=== PATIENT | male | born 1965 | race Caucasian/White ===

== ENCOUNTER 2018-09-05 05:28 | Day surgery (SDC) | payer OTHER, SELFPAY ==
[2018-09-05] VITALS (8 sets, daily range): BP systolic 102–136; BP diastolic 70–89; PULSE 70–76; RESP 16; TEMP 36.3–37.1; O2SAT 94–99; BMI 29.8
--- NOTE | 2018-09-05 06:08 | PCM.HP.STD ---
Problem List (1) Screening for intestinal cancer Status: Acute History of Present Illness Date of Admission: 09/05/18 The patient is a 53 year old M who presents for screening colonoscopy. He has not had any previous examination. He denies abdominal pain. No bright red blood per rectum or melena. No unexpected weight loss. There is no family history of colon polyps or colon cancer. He otherwise enjoys a steady degree of health. He is a type II diabetic and he does not check his blood sugars. In addition he does use chewing tobacco. He works as a recycler forklift driver truck driver. Past Medical History Allergies No Known Allergies Allergy (Verified 09/04/18 13:35) Home Medications: Ambulatory Orders Medication Instructions Recorded Dapagliflozin Propanediol [Farxiga] 10 mg PO DAILY 09/04/18 Lisinopril [Zestril] 10 mg PO DAILY 09/04/18 Sitagliptin Phos/Metformin HCl 1 tablet PO BIDCM 09/04/18 [Janumet 50-1,000 MG Tablet] Smoking Status: Current every day smoker Tobacco Use: Chew Review of Systems Constitutional: Denies: Anorexia HEENT: Denies: Difficulty Swallowing Cardiovascular: Denies: Chest Pain Respiratory: Denies: Cough Gastrointestinal: Denies: Abdominal Pain, Hematochezia, Melena Musculoskeletal: Denies: Leg Pain Neurological: Denies: Balance problems Endocrine: Denies: Change in Body Habitus VTE Information - Inpt Only VTE Present on Admission: No Patient Problems: Active and Suspected Problems Screening for intestinal cancer (Acute) - Physical Exam General: Alert, Oriented x3, Cooperative, No apparent distress Oral: Moist Mucosa Neck: Supple Lungs: Clear to auscultation Cardiovascular: Regular rate, Regular Rhythm Abdomen: Bowel Sounds Present, Soft, Non Tender Extremities: No clubbing Skin: No rashes Vital Signs Temp Pulse Resp BP Pulse Ox 97.3 F L 76 16 106/83 H 99 09/05/18 05:46 09/05/18 05:46 09/05/18 05:46 09/05/18 05:46 09/05/18 05:46 Oxygen Delivery Method Room Air Weight: 207 lb 14.334 oz Body Mass Index (BMI) 29.8 Assessment/Plan All Active Problems Screening for intestinal cancer (Acute) 53-year-old gentleman who has not had a previous screening colonoscopy. I discussed with him the technique, benefits, risks and alternatives. He has had an opportunity to ask and have questions answered. He presents via our open Access program. We will proceed as noted. Felix Calvo M.D., F.A.C.S.
--- NOTE | 2018-09-05 06:30 | COLBX_PTH ---
PATIENT: IRVIN PETERSON LOC: EN U#:[id number] AGE/SX: 53/M ROOM: RE09/05/[address]: Dr. Felix Calvo MD : 1965 BED: DIS: 09/05/2018 SPEC #: [id number] RECD: 09/05/18 12:09 STATUS: JESSICA CHRIS #: [id number] MARISOL: 09/05/18 06:[address]: Felix Calvo DEPT: SURGICAL PATHOLOGY RECD BY: Umesh Parnell ENTERED: 09/05/18 12:32 SP TYPE: COLON BX OTHR DR: Cristine Law DO Tissues: Sigmoid colon biopsy Procedures: Surgery Specimen Level IV HEADER OPERATION: Colonoscopy (MOD) PRE-OP DIAGNOSIS: Screening TISSUE SUBMITTED: Mid sigmoid polyp MICROSCOPIC DIAGNOSIS Mid sigmoid colon polyp, biopsy: Fragments of hyperplastic polyp. AM:maribell 09/08/18 MICROSCOPIC DESCRIPTION Slides are reviewed. GROSS DESCRIPTION Received in fixative is one container labeled with the patient's name and designated mid sigmoid polyp. The specimen consists of two pieces of mike-pink soft tissue mixed with fecal material that in aggregate measure 1.5 x 0.5 x 0.1 cm. The specimen is totally submitted in one cassette. / SJ:maribell 09/05/18 TC:5 CPT: 06478
--- NOTE | 2018-09-05 06:48 | OP.ENDO_ITS ---
Patient Name: Flip Monteiro Procedure Date: 09/05/2018 5:58 AM Date of : 1965 Age: 53 Procedure: Colonoscopy Indications: Screening for colorectal malignant neoplasm Providers: Felix Calvo MD Referring MD: Felix Calvo MD Medicines: Midazolam 4.5 mg IV, Meperidine 100 mg IV Patient Profile: Last Colonoscopy: none. The patient's first colonoscopy is today. Complications: No immediate complications. Procedure: Pre-Anesthesia Assessment: - Prior to the procedure, a History and Physical was performed, and patient medications and allergies were reviewed. The patient's tolerance of previous anesthesia was also reviewed. The risks and benefits of the procedure and the sedation options and risks were discussed with the patient. All questions were answered, and informed consent was obtained. Prior Anticoagulants: The patient has taken no previous anticoagulant or antiplatelet agents. ASA Grade Assessment: II - A patient with mild systemic disease. After reviewing the risks and benefits, the patient was deemed in satisfactory condition to undergo the procedure. After I obtained informed consent, the scope was passed under direct vision. Throughout the procedure, the patient's blood pressure, pulse, and oxygen saturations were monitored continuously. The Colonoscope was introduced through the anus and advanced to the cecum, identified by appendiceal orifice and ileocecal valve. The colonoscopy was performed without difficulty. The patient tolerated the procedure well. The quality of the bowel preparation was good. The ileocecal valve and the appendiceal orifice were photographed. Moderate Sedation: Moderate (conscious) sedation was personally administered by the endoscopist. The following parameters were monitored: oxygen saturation, heart rate, blood pressure, and response to care. Total physician intraservice time was 15 minutes. Scope In: 6:30:59 AM Scope Withdrawal Time 0 hours 9 minutes 14 seconds Scope Out: 6:43:08 AM Total Procedure Duration Time 0 hours 12 minutes 9 seconds Findings: The perianal and digital rectal examinations were normal. A 7 mm polyp was found in the sigmoid colon mid sigmoid colon. The polyp was sessile. The polyp was removed with a cold snare. Resection and retrieval were complete. To prevent bleeding post-intervention, one hemostatic clip was successfully placed. There was no bleeding at the end of the procedure. The exam was otherwise without abnormality. Impression: - One 7 mm polyp in the sigmoid colon in the mid sigmoid colon, removed with a cold snare. Resected and retrieved. Clip was placed. - The examination was otherwise normal. Recommendation: - Discharge patient to home. - Resume previous diet. - Continue present medications. - Telephone my office for pathology results in 1 week. - Repeat colonoscopy in 5 years for surveillance. Procedure Code(s): --- Professional --- 59713, Colonoscopy, flexible; with removal of tumor(s), polyp(s), or other lesion(s) by snare technique 61529, 59, Moderate sedation services provided by the same physician or other qualified health cardiac care unit nurse performing the diagnostic or therapeutic service that the sedation supports, requiring the presence of an independent trained observer to assist in the monitoring of the patient's level of consciousness and physiological status; initial 15 minutes of intraservice time, patient age 5 years or older Diagnosis Code(s): --- Professional --- Z12.11, Encounter for screening for malignant neoplasm of colon D12.5, Benign neoplasm of sigmoid colon CPT copyright 2017 [employer]. All rights reserved. The codes documented in this report are preliminary and upon fiberglass finisher review may be revised to meet current compliance requirements. Felix Calvo MD 09/05/2018 6:48:27 AM This report has been signed electronically. Number of Addenda: 0 Note Initiated On: 09/05/2018 5:58 AM
--- OUTSIDE RECORDS SUMMARY | 2018-10-31 00:42 | XMS RPT_ITS ---
:1965 Author Organization [facility] Care Team Providers Name Role Phone Nurse, Surgery Attending Unavailable William Johnson Referring Unavailable Felix Calvo Attending Unavailable Felix Calvo Referring Unavailable Cristine Law Primary Care Unavailable Felix Calvo Attending Unavailable Felix Calvo Referring Unavailable Cristine Law Primary Care Unavailable Felix Calvo Consulting Unavailable PROBLEMS PROBLEMS No Problem Records FoundPROCEDURES PROCEDURES No Procedure Records FoundRESULTS RESULTS OPERATIVE REPORT - Observed: 09/05/2018 Status: F Source: [facility] 6:48 AM [facility] Medical Records Department [address] [place] [address] Operative Report - Endoscopy MR#: [id number] Acct: [id number] Name: IRVIN PETERSON Rep #: [id number] : 1965 53 From: Felix Calvo MD PCP: Cristine Law DO Status: REG [facility] Patient Name: Irvin Peterson Procedure Date: 09/05/2018 5:58 AM Date of : 1965 Age: 53 Procedure: Colonoscopy Indications: Screening for colorectal malignant neoplasm Providers: Felix Calvo MD Referring MD: Felix Calvo MD Medicines: Midazolam 4.5 mg IV, Meperidine 100 mg IV Patient Profile: Last Colonoscopy: none. The patient's first colonoscopy is today. Complications: No immediate complications. Procedure: Pre-Anesthesia Assessment: - Prior to the procedure, a History and Physical was performed, and patient medications and allergies were reviewed. The patient's tolerance of previous anesthesia was also reviewed. The risks and benefits of the procedure and the sedation options and risks were discussed with the patient. All questions were answered, and informed consent was obtained. Prior Anticoagulants: The patient has taken no previous anticoagulant or antiplatelet agents. ASA Grade Assessment: II - A patient with mild systemic disease. After reviewing the risks and benefits, the patient was deemed in satisfactory condition to undergo the procedure. After I obtained informed consent, the scope was passed under direct vision. Throughout the procedure, the patient's blood pressure, pulse, and oxygen saturations were monitored continuously. The Colonoscope was introduced through the anus and advanced to the cecum, identified by appendiceal orifice and ileocecal valve. The colonoscopy was performed without difficulty. The patient tolerated the procedure well. The quality of the bowel preparation was good. The ileocecal valve and the appendiceal orifice were photographed. Moderate Sedation: Moderate (conscious) sedation was personally administered by the endoscopist. The following parameters were monitored: oxygen saturation, heart rate, blood pressure, and response to care. Total physician intraservice time was 15 minutes. Scope In: 6:30:59 AM Scope Withdrawal Time 0 hours 9 minutes 14 seconds Scope Out: 6:43:08 AM Total Procedure Duration Time 0 hours 12 minutes 9 seconds Findings: The perianal and digital rectal examinations were normal. A 7 mm polyp was found in the sigmoid colon mid sigmoid colon. The polyp was sessile. The polyp was removed with a cold snare. Resection and retrieval were complete. To prevent bleeding post-intervention, one hemostatic clip was successfully placed. There was no bleeding at the end of the procedure. The exam was otherwise without abnormality. Impression: - One 7 mm polyp in the sigmoid colon in the mid sigmoid colon, removed with a cold snare. Resected and retrieved. Clip was placed. - The examination was otherwise normal. Recommendation: - Discharge patient to home. - Resume previous diet. - Continue present medications. - Telephone my office for pathology results in 1 week. - Repeat colonoscopy in 5 years for surveillance. Procedure Code(s): --- Professional --- 57959, Colonoscopy, flexible; with removal of tumor(s), polyp(s), or other lesion(s) by snare technique 30283, 59, Moderate sedation services provided by the same physician or other qualified health life care planner performing the diagnostic or therapeutic service that the sedation supports, requiring the presence of an independent trained observer to assist in the monitoring of the patient's level of consciousness and physiological status; initial 15 minutes of intraservice time, patient age 5 years or older Diagnosis Code(s): --- Professional --- Z12.11, Encounter for screening for malignant neoplasm of colon D12.5, Benign neoplasm of sigmoid colon CPT copyright 2017 [employer]. All rights reserved. The codes documented in this report are preliminary and upon hands assembler review may be revised to meet current compliance requirements. Felix Calvo MD 09/05/2018 6:48:27 AM This report has been signed electronically. Number of Addenda: 0 Note Initiated On: 09/05/2018 5:58 AM 09/05/18 0648 Date Felix Calvo MD Cosigner Signature: Date (if indicated) CC: Cristine Law DO; Felix Calvo MD Date Dictated: 09/05/18 0558 Date Transcribed: Drug Department Worker: REBECA Signed COLON BIOPSY (CHOOSE Observed: 09/05/2018 Status: F Source: [facility]) 6:30 AM [facility] Patient: IRVIN PETERSON : 1965 (53/M) Acct Num: [id number] Phys: Felix Calvo MD Unit Num: [id number] Loc: EN Specimen: [id number] Received: 09/05/18 - 1209 Spec Type: COLON BX TISSUES 1 TISSUES: Sigmoid colon biopsy GROSS DESCRIPTION Received in fixative is one container labeled with the patient's name and designated mid sigmoid polyp. The specimen consists of two pieces of mike-pink soft tissue mixed with fecal material that in aggregate measure 1.5 x 0.5 x 0.1 cm. The specimen is totally submitted in one cassette. / SJ:maribell 09/05/18 TC:5 CPT: 97527 HEADER OPERATION: Colonoscopy (MOD) PRE-OP DIAGNOSIS: Screening TISSUE SUBMITTED: Mid sigmoid polyp MICROSCOPIC DESCRIPTION Slides are reviewed. MICROSCOPIC DIAGNOSIS Mid sigmoid colon polyp, biopsy: Fragments of hyperplastic polyp. AM:maribell 09/08/18 Signed Denilson Wicho 09/08/18 <signature on file> Performed By: #### PCOLBX #### [facility] [address] [place] [place], [address] HISTORY AND PHYSICAL Observed: 09/05/2018 Status: F Source: [facility] 6:11 AM [facility] Medical Records Department [address] [place] [address] History and Physical 09/05/18 0608 MR#: [id number] Acct: [id number] Name: IRVIN PETERSON Rep #: [id number] : 1965 53 From: Felix Calvo MD PCP: Cristine Law DO Status: REG [facility] Y Location: [place] [address] Problem List (1) Screening for intestinal cancer Status: Acute History of Present Illness Date of Admission: 09/05/18 The patient is a 53 year old M who presents for screening colonoscopy. He has not had any previous examination. He denies abdominal pain. No bright red blood per rectum or melena. No unexpected weight loss. There is no family history of colon polyps or colon cancer. He otherwise enjoys a steady degree of health. He is a type II diabetic and he does not check his blood sugars. In addition he does use chewing tobacco. He works as a truck crane operator. Past Medical History Allergies No Known Allergies Allergy (Verified 09/04/18 13:35) Home Medications: Ambulatory Orders Medication Instructions Recorded Dapagliflozin Propanediol [Farxiga] 10 mg PO DAILY 09/04/18 Smoking Status: Current every day smoker Tobacco Use: Chew Review of Systems Constitutional: Denies: Anorexia HEENT: Denies: Difficulty Swallowing Cardiovascular: Denies: Chest Pain Respiratory: Denies: Cough Gastrointestinal: Denies: Abdominal Pain, Hematochezia, Melena Musculoskeletal: Denies: Leg Pain Neurological: Denies: Balance problems Endocrine: Denies: Change in Body Habitus VTE Information - Inpt Only VTE Present on Admission: No Patient Problems: Active and Suspected Problems Screening for intestinal cancer (Acute) - Physical Exam General: Alert, Oriented x3, Cooperative, No apparent distress Oral: Moist Mucosa Neck: Supple Lungs: Clear to auscultation Cardiovascular: Regular rate, Regular Rhythm Abdomen: Bowel Sounds Present, Soft, Non Tender Extremities: No clubbing Skin: No rashes Vital Signs Temp Pulse Resp BP Pulse Ox 97.3 F L 76 16 106/83 H 99 09/05/18 05:46 09/05/18 05:46 09/05/18 05:46 09/05/18 05:46 09/05/18 05:46 Oxygen Delivery Method Room Air Weight: 207 lb 14.334 oz Body Mass Index (BMI) 29.8 Assessment/Plan All Active Problems Screening for intestinal cancer (Acute) 53-year-old gentleman who has not had a previous screening colonoscopy. I discussed with him the technique, benefits, risks and alternatives. He has had an opportunity to ask and have questions answered. He presents via our open Access program. We will proceed as noted. Felix Calvo M.D., F.A.C.S. 09/05/18 0611 <Electronically signed by Felix Calvo MD> Date Felix Calvo MD Cosigner Signature: Date (if applicable) CC: Cristine Law DO; Felix Calvo MD Signed ALLERGIES ALLERGIES DATE TYPE / CODE NAME / CODE REACTION SEVERITY SOURCE 09/04/2018 Drug No Known Unknown [facility] Allergy/4160 Allergies/F00 [facility] 96693(SNOMED 6279326(RXNOR Repository CT) M) ENCOUNTERS ENCOUNTERS ADMIT/DISCHARGE ACCOUNT ADMITTING ENCOUNTER LOCATION SOURCE NUMBER CLASS 09/05/2018 [id number] Ambulatory BMSBuilding:[facility] [place] [facility] [place] Repository 09/05/2018/ [id number] Ambulatory [place] 8 9 [facility] ing:EN Repository 08/07/2018/ [id number] Ambulatory BMSBuilding:B [place] 8 8 [place].[facility] Repository PAYERS PAYERS ENCOUNTER GUARANTOR PAYER SUBSCRIBER SOURCE 09/05/2018 IRVIN So [id number] Primary IRVIN So EBBREEZYOB: [facility] Insurance:[id number] [address]Epy: (330) Number: Repository [phone] () [id number] [place] [id number]: 09/05/2018 Secondary NOT GIVENUNK [place] Insurance:SELF PAY [facility] Number: Effective Repository Date:2018-09-05 09/05/2018 IRVIN So [id number] Primary IRVIN So EBYDOB: [facility] Insurance:MEDICAL [id number] [address]Nzp: [phone]) Number: Repository [phone] () [id number] Date:7304[place] [id number]: 09/05/2018 Secondary NOT GIVENUNK [place] Insurance:SELF PAY [facility] Number: Effective Repository Date:2018-08-08 08/07/2018 IRVIN [id number] Primary IRVIN DAVEYDOB: [facility] Insurance:MEDICAL [id number] [address]Dhz: (330) Number: Repository [phone] () [id number] Date:0510-95-61KN [address] [place], [place] [id number]: 08/07/2018 Secondary NOT GIVENUNK [place] Insurance[facility]LF [facility]Y [facility] Number: Effective Repository Date:2018-08-07
== END 2018-09-05 07:23 | disposition home or self-care (01) ==
LOC: EN 05:29 → AC 05:48
PROVIDERS: Family Provider Family Medicine; PCP Family Medicine; Referring Provider Surgery; Visit Provider Surgery
PROC: 0DJD8ZZ Inspection of Lower Intestinal Tract, Via Natural or Artificial Opening Endoscopic (ICD-10-PCS; CPT 45378; principal; 2018-09-05 06:25)
DX: Z12.11 Encounter for screening for malignant neoplasm of colon (principal); K63.5 Polyp of colon; E11.9 Type 2 diabetes mellitus without complications; F17.220 Nicotine dependence, chewing tobacco, uncomplicated; Z79.84 Long term (current) use of oral hypoglycemic drugs; Z79.899 Other long term (current) drug therapy
CPT/HCPCS: 45385; 88305; 99152; 99153; J7120

== ENCOUNTER 2019-06-29 00:01 | Emergency (ER) | payer OTHER, SELFPAY ==
[2019-06-24 18:36] VITALS: BMI 29.8
[2019-06-29 00:01] VITALS: BP 145/91; PULSE 69; RESP 16; TEMP 36.1; BMI 31.6
--- NOTE | 2019-06-29 00:33 | ED.VIS.GEN ---
History of Present Illness Chief Complaint: Dental Narrative: Patient is a 54-year-old male who presents with dental pain. He is a diabetic as well. He chipped or broke his tooth last week. He saw the dentist but at that time actually was not having pain. He was scheduled for another appointment this upcoming Saturday. However he developed severe throbbing pain today. No heat or cold sensitivity. No facial or jaw swelling. No fever. He did take some Tylenol with little relief. Past Medical History - Allergies and Home Meds Allergies/Adverse Reactions: Allergies No Known Allergies Allergy (Verified 06/24/19 18:07) Primary Care Physician: Ce Peres MD [Primary Care Provider] - Prior records reviewed: Yes Past Medical History: - - Diabetes Smoking Status: Never smoker Review of Systems All systems negative except as indicated General: Denies: Fever ENT: Reports: - - Dental pain Cardiovascular: Denies: Chest pain Respiratory: Denies: Dyspnea Gastrointestinal: Denies: Vomiting, Diarrhea Physical Exam Vital Signs/Narrative: Vital Signs Temp Pulse Resp BP 06/29/19 00:01 97.0 F L 69 16 145/91 H Inital Vital Signs reviewed: Yes General: Well nourished Head: Normocephalic Eyes: EOMI ENT: Moist mucous membranes, - - Fracture of the right second mandibular molar as well as focal decay he does not have a focal dental abscess amenable to incision and drainage no facial or jaw swelling no trismus clear speech Cardiovascular: Regular rate Respiratory: No distress Skin: Normal color Neurological: Alert Psychological: Normal affect Diagnostic/Tx/Re-eval - Medical Decision Making Patient was given prescriptions for penicillin VK as well as [place]. He was advised to use ibuprofen as well. He was advised to keep his scheduled follow-up with dentistry, understands to return for new or worsening symptoms, and was discharged home. ED Disposition - Plan for ED Patient: Disposition: Home or Assisted Living Diagnosis: Pain, dental Instructions: Dental Pain Prescriptions: Hydrocodone Bitart/Apap 5-325 [[place] 5MG-325MG] 1 tab PO Q6H PRN PRN 3 Days #12 tab PRN Reason: Pain Prescription Printed Penicillin V Potassium 500 mg PO 4X/DAY #40 tab Prescription Printed Referrals: Ce Peres MD [Primary Care Provider] -
[2019-06-29 00:43] VITALS: RESP 16
== END 2019-06-29 00:43 | disposition home or self-care (01) ==
PROVIDERS: Emergency Provider Emergency Medicine; Family Provider Internal Medicine; PCP Internal Medicine
DX: K08.89 Other specified disorders of teeth and supporting structures (principal); E11.9 Type 2 diabetes mellitus without complications
CPT/HCPCS: 99282

== ENCOUNTER → 2019-09-25 07:58 | Outpatient (CLI) | payer OTHER, SELFPAY ==
[2019-09-25 07:19] VITALS: BMI 31.6
[2019-09-25 13:39] LABS: Absolute Lymphocyte Count 1.87 X10^3/uL (0.83-4.51); Absolute Neutrophil Count 3.7 X10^3/uL (2.0-7.7); Basophil# 0.05 X10^3/uL; Basophil% 0.8 % (0-1); Eosinophil# 0.08 X10^3/uL; Eosinophils% 1.3 % (0-5); Hematocrit 51.7 % (40-54); Hemoglobin 16.8 g/dL (13.0-16.5); Lymphocyte # 1.87 X10^3/ul (4.0); Lymphocyte % 30.1 % (19-41); Mean Corp Hgb Conc 32.5 g/dL (32-36); Mean Corpuscular Hgb 28.7 pg (27.0-32.0); Mean Corpuscular Volume 88.2 fL (80-94); Mean Platelet Vol. 10.7 fl (6.2-12.0); Monocyte# 0.53 X10^3/uL; Monocyte% 8.5 % (0-10); NRBC Flagged by Analyzer 0 % (0-5); Neutrophil # 3.66 X10^3/uL (2.7-7.7); Neutrophil % 58.8 % (47-70); Platelet Count 226 K/mm3 (150-450); RBC Distribution Width CV 12.6 % (11.6-14.6); RBC Distribution Width SD 40.9 fl (35.1-43.9); Red Blood Count 5.86 M/mm3 (4.6-6.2); White Blood Count 6.2 K/mm3 (4.4-11.0)
[2019-09-25 13:49] LABS: Thyroid Stim Hormone (TSH) 1.87 uIU/mL (0.358-3.74)
[2019-09-25 13:59] LABS: Microalbumin,Random Urine 8.7 mg/L (NO RANGE EST.); Microalbumin:Creatinine Ratio 7.7 mg/g CRE (<30 mg/g CRE)
[2019-09-25 14:15] LABS: ALB/GLOB Ratio 1.2 RATIO (0.9-2.4); AST(SGOT) 18 U/L (15-37); Alanine Aminotransfer ALT/SGPT 25 U/L (16-61); Albumin, Serum 4.1 g/dL (3.2-5.0); Alkaline Phosphatase 85 U/L (45-117); Anion Gap 6 (5-15); BUN 12 mg/dL (7-18); BUN/Creat Ratio 9.6 RATIO (10-20); Calcium,Total 9.1 mg/dL (8.5-10.1); Chloride 106 mmol/L (98-107); Cholesterol 112 mg/dL (200); Creatinine, Serum 1.25 mg/dL (0.70-1.30); EST Glomerular Filtration Rate 64 mL/min (>60); Est Glom Filt Rate - Afr Amer 78 mL/min (>60); Globulin 3.5 g/dL (2.2-4.2); Glucose 100 mg/dL (74-106); High Density Lipoprotein 33 mg/dL; PSA,Total - Annual Screen 2.92 ng/mL (0.00-4.00); Potassium 4.3 mmol/L (3.5-5.1); Protein, Total 7.6 g/dL (6.4-8.2); Sodium Level 141 mmol/L (136-145); Triglycerides 137 mg/dL; Very Low Density Lipoprotein 27 mg/dL (5-40)
== END ==
PROVIDERS: Family Provider Internal Medicine; PCP Internal Medicine; Visit Provider Nurse Practitioner Family
DX: Z00.00 Encounter for general adult medical examination without abnormal findings (principal); E11.9 Type 2 diabetes mellitus without complications; R53.83 Other fatigue
CPT/HCPCS: 36415; 80053; 80061; 82043; 82570; 84153; 84443; 85025; G0103

== ENCOUNTER → 2020-12-20 09:27 | Outpatient (CLI) | payer OTHER, SELFPAY ==
[2020-12-20 09:01] VITALS: BMI 32.4
[2020-12-20 12:40] LABS: Absolute Lymphocyte Count 1.61 X10^3/uL (0.83-4.51); Absolute Neutrophil Count 3.7 X10^3/uL (2.0-7.7); Basophil# 0.04 X10^3/uL; Basophil% 0.7 % (0-1); Eosinophil# 0.05 X10^3/uL; Eosinophils% 0.8 % (0-5); Lymphocyte # 1.61 X10^3/ul (4.0); Lymphocyte % 27.1 % (19-41); Mean Corpuscular Hgb 29.8 pg (27.0-32.0); Mean Corpuscular Volume 87.5 fL (80-94); Monocyte# 0.49 X10^3/uL; Monocyte% 8.2 % (0-10); NRBC Flagged by Analyzer 0 % (0-5); Neutrophil # 3.73 X10^3/uL (2.7-7.7); Neutrophil % 62.9 % (47-70); Platelet Count 176 K/mm3 (150-450); RBC Distribution Width CV 12.4 % (11.6-14.6); RBC Distribution Width SD 38.9 fl (35.1-43.9); Red Blood Count 5.37 M/mm3 (4.6-6.2); White Blood Count 5.9 K/mm3 (4.4-11.0)
[2020-12-20 13:00] LABS: Microalbumin,Random Urine 8.4 mg/L (NO RANGE EST.); Microalbumin:Creatinine Ratio 5.5 mg/g CRE (<30 mg/g CRE)
[2020-12-20 13:39] LABS: PSA,Total - Annual Screen 2.13 ng/mL (0.00-4.00)
[2020-12-20 14:03] LABS: ALB/GLOB Ratio 1.1 RATIO (0.9-2.4); AST(SGOT) 15 U/L (15-37); Alanine Aminotransfer ALT/SGPT 25 U/L (16-61); Albumin, Serum 3.8 g/dL (3.2-5.0); Alkaline Phosphatase 88 U/L (45-117); Anion Gap 8 (5-15); BUN 12 mg/dL (7-18); Chloride 101 mmol/L (98-107); Cholesterol 135 mg/dL (200); Creatinine, Serum 1.34 mg/dL (0.70-1.30); EST Glomerular Filtration Rate 59 mL/min (>60); Est Glom Filt Rate - Afr Amer 72 mL/min (>60); Globulin 3.6 g/dL (2.2-4.2); Glucose 244 mg/dL (74-106); High Density Lipoprotein 38 mg/dL; Potassium 4.5 mmol/L (3.5-5.1); Protein, Total 7.4 g/dL (6.4-8.2); Sodium Level 135 mmol/L (136-145); Thyroid Stim Hormone (TSH) 1.49 uIU/mL (0.358-3.74); Triglycerides 204 mg/dL; Very Low Density Lipoprotein 41 mg/dL (5-40)
== END ==
PROVIDERS: PCP Internal Medicine; Referring Provider Nurse Practitioner Family; Visit Provider Nurse Practitioner Family
DX: E11.9 Type 2 diabetes mellitus without complications (principal); I10 Essential (primary) hypertension; Z12.5 Encounter for screening for malignant neoplasm of prostate
CPT/HCPCS: 36415; 80053; 80061; 82043; 82570; 84153; 84443; 85025; G0103

== ENCOUNTER 2021-12-22 08:05 | Outpatient (CLI) | payer BC, SELFPAY ==
[2021-12-22 12:24] LABS: Absolute Lymphocyte Count 2.19 X10^3/uL (0.83-4.51); Absolute Neutrophil Count 3.4 X10^3/uL (2.0-7.7); Basophil# 0.05 X10^3/uL; Basophil% 0.8 % (0-1); Eosinophil# 0.05 X10^3/uL; Eosinophils% 0.8 % (0-5); Hematocrit 47.1 % (40-54); Hemoglobin 15.8 g/dL (13.0-16.5); Lymphocyte # 2.19 X10^3/ul (0.83-4.51); Lymphocyte % 35.3 % (19-41); Mean Corp Hgb Conc 33.5 g/dL (32-36); Mean Corpuscular Hgb 29.9 pg (27.0-32.0); Mean Platelet Vol. 10.6 fl (6.2-12.0); Monocyte# 0.52 X10^3/uL; Monocyte% 8.4 % (0-10); NRBC Flagged by Analyzer 0 % (0-5); Neutrophil # 3.38 X10^3/uL (2.7-7.7); Neutrophil % 54.4 % (47-70); Platelet Count 214 K/mm3 (150-450); RBC Distribution Width CV 12.7 % (11.6-14.6); RBC Distribution Width SD 41.2 fl (35.1-43.9); Red Blood Count 5.29 M/mm3 (4.6-6.2); White Blood Count 6.2 K/mm3 (4.4-11.0)
[2021-12-22 12:52] LABS: Hemoglobin A1c 7.1 % (3.8-5.6)
[2021-12-22 13:04] LABS: ALB/GLOB Ratio 1.2 RATIO (0.9-2.4); AST(SGOT) 19 U/L (15-37); Alanine Aminotransfer ALT/SGPT 27 U/L (16-61); Albumin, Serum 3.8 g/dL (3.2-5.0); Alkaline Phosphatase 80 U/L (45-117); Anion Gap 3 (5-15); BUN 14 mg/dL (7-18); BUN/Creat Ratio 11.4 RATIO (10-20); Calcium,Total 8.9 mg/dL (8.5-10.1); Chloride 106 mmol/L (98-107); Cholesterol 130 mg/dL (200); Creatinine, Serum 1.23 mg/dL (0.70-1.30); EST Glomerular Filtration Rate 65 mL/min (>60); Est Glom Filt Rate - Afr Amer 79 mL/min (>60); Globulin 3.3 g/dL (2.2-4.2); Glucose 147 mg/dL (74-106); High Density Lipoprotein 33 mg/dL; Potassium 3.8 mmol/L (3.5-5.1); Protein, Total 7.1 g/dL (6.4-8.2); Sodium Level 138 mmol/L (136-145); Thyroid Stim Hormone (TSH) 2.06 uIU/mL (0.358-3.74); Triglycerides 156 mg/dL; Very Low Density Lipoprotein 31 mg/dL (5-40)
[2021-12-22 13:10] LABS: PSA,Total - Annual Screen 2.11 ng/mL (0.00-4.00)
== END 2021-12-22 23:59 | disposition home or self-care (01) ==
LOC: BIMLAB 08:05
PROVIDERS: PCP Internal Medicine; Referring Provider Nurse Practitioner Family; Visit Provider Nurse Practitioner Family
DX: Z00.00 Encounter for general adult medical examination without abnormal findings (principal); E11.9 Type 2 diabetes mellitus without complications; Z12.5 Encounter for screening for malignant neoplasm of prostate
CPT/HCPCS: 36415; 80053; 80061; 83036; 84153; 84443; 85025; G0103

== ENCOUNTER 2023-04-12 19:26 | Emergency (ER) | payer BC, SELFPAY ==
[2023-04-12 19:27] VITALS: BP 141/91; PULSE 80; RESP 16; TEMP 36.4; O2SAT 95; BMI 32.4
--- NOTE | 2023-04-12 19:35 | EX.ED.DYSGE1 ---
HPI History of Present Illness Chief Complaint: Other, Pain/Inj Informant: patient Onset/Context/Timing Onset: Today Context: Sudden Onset Timing: Intermittent and Lasts (10 to 15 minutes) Quality: Dull, cramping Location: Left side Worsened by: Nothing Relieved by: Nothing Narrative Narrative: Patient presents with left-sided pain that began today. Patient states it began rather suddenly. Patient states it is intermittent. Patient states when it comes on last for approximately 10 to 15 minutes. Patient describes it as dull and cramping. Patient states it is localized to the left side from his lower ribs to his iliac crest. Patient states nothing makes it worse and nothing makes it better. Patient denies any fevers or chills. Patient denies any dysuria or hematuria. Patient denies any nausea or vomiting. Patient states he has had a history of a kidney stone in the past but it was many years ago. [facility] Medical History (Updated 04/12/23 @ 21:[address] Mario Gilbert DO) Back problem Biceps tendon rupture Diabetes Encounter for routine adult medical examination Home Medications lisinopril 10 mg tablet 10 mg PO DAILY #90 tabs 08/23/21 [Rx Last Taken Unknown] metformin 1,000 mg tablet 1,000 mg PO BID #180 tabs 03/06/22 [Rx Last Taken Unknown] dulaglutide 1.5 mg/0.5 mL subcutaneous pen injector (Trulicity) 1.5 mg (0.5 mL) subcut QWEEK #6 mL 03/26/23 [Rx Last Taken Unknown] hydrocodone-acetaminophen 5-325mg 5mg-325mg 1 tab PO Q6H PRN PRN Pain 3 days #10 TABLETS 04/12/23 [Rx Last Taken Unknown] Allergy/AdvReac Type Severity Reaction Status Date / Time No Known Allergies Allergy Verified 04/12/23 19:26 Family History Father Prostate cancer Diabetes CVA (cerebral vascular accident) Surgical History History of colonoscopy S/P ORIF (open reduction internal fixation) fracture S/P tendon repair Social History Smoking Status: Never smoker Smokeless tobacco user: chewing tobacco alcohol intake: never substance use type: does not use what type of physical activity do you participate in: walking ROS ROS ED Constitutional Constitutional ED: Denies chills or fever(s) Eyes Eyes: Denies blurry vision or change in vision ENT ENT ED: Denies rhinorrhea or sore throat Cardiovascular Cardiovascular: Denies chest pain or palpitations Respiratory/Chest Respiratory/Chest: Denies cough or dyspnea Gastrointestinal Gastrointestinal: Denies nausea or vomiting Genitourinary Genitourinary ED: Denies dysuria or hematuria Musculoskeletal Musculoskeletal: Denies back pain or neck pain Integumentary Denies abscess or rash Neurologic Neurologic: Denies headache(s) or weakness Allergic/Immunologic Allergic/Immunologic ED: Denies mouth swelling or urticaria EXAM Physical Exam Const Vital Signs: 04/12/23 19:27 04/12/23 19:53 Temperature 97.6 F L Temperature Source Temporal Pulse Rate 80 Respiratory Rate 16 Respiratory Effort Normal Non-Labored Respiratory Pattern Normal Blood Pressure 141/91 H Blood Pressure Mean 107 Pulse Ox 95 Positive well nourished and well developed General Appearance ED: well developed and NAD HEENT Reports moist mucous membranes Neck supple and no JVD Resp normal respiratory effort and clear to auscultation bilaterally Cardio regular rate, regular rhythm and no murmurs GI normal to inspection, nondistended, normoactive bowel sounds and non-tender Palpation: soft Extremity normal to inspection General Extremety ED: Negative for edema or tenderness General Extremity: Negative for edema Neuro oriented x3, CN's II-XII intact bilaterally and no sensory deficits noted Sensorium / Orientation: alert Motor Exam: strength 5/5 throughout Psych mental status grossly normal Skin no rashes or lesions noted MDM MDM MDM Narrative Medical decision making narrative: Differential diagnosis includes ureteral calculus, pyelonephritis, diverticulitis, colitis, and pancreatitis. CBC will be obtained to assess for leukocytosis and anemia. Comprehensive metabolic profile will be obtained to assess for hepatic function, renal function, and electrolyte abnormality. Lipase will be obtained to assess for pancreatitis. Urinalysis will be obtained to assess for urinary tract infection and hematuria. CT scan of the abdomen pelvis will be obtained to assess for ureteral calculus. History & Record Review Additional record(s) reviewed:: Prior labs Lab Data Lab results narrative: CBC was reviewed and was within normal limits. Comprehensive metabolic profile was reviewed. Creatinine was slightly elevated at 1.33. This is stable compared to previous results. Glucose was 154. The remainder was within normal limits. Lipase was reviewed and was normal. Urinalysis was reviewed. There are 50-100 red blood cells and occult blood was 250. There are 0 white blood cells seen. Labs: Laboratory Results - last 24 hr 04/12/23 04/12/23 20:04 20:35 WBC 10.6 RBC 5.30 Hgb 15.9 Hct 45.2 MCV 85.3 MCH 30.0 MCHC 35.2 RDW Std Deviation 38.3 RDW Coeff of Ozzy 12.4 Plt Count 214 MPV 10.3 Immature Gran % (Auto) 0.300 Neut % (Auto) 78.3 H Lymph % (Auto) 16.3 L [place] % (Auto) 4.7 Eos % (Auto) 0.1 Baso % (Auto) 0.3 Absolute Neuts (auto) 8.3 H Absolute Lymphs (auto) 1.73 Nucleated RBC % 0 Sodium 138 Potassium 4.0 Chloride 106 Carbon Dioxide 26.0 Anion Gap 6 BUN 13 Creatinine 1.33 H Estim Creat Clear Calc 62.76 Est GFR (MDRD) Af Amer 72 Est GFR (MDRD) Non-Af 59 L BUN/Creatinine Ratio 9.8 L Glucose 154 H Calcium 8.9 Total Bilirubin 0.60 AST 14 L ALT 20 Alkaline Phosphatase 77 Total Protein 7.1 Albumin 3.6 Globulin 3.5 Albumin/Globulin Ratio 1.0 Lipase 39 Urine Color Yellow Urine Clarity Sl. Cloudy Urine pH 6.0 Ur Specific [place] 1.015 Urine Protein 30 H Urine Glucose (UA) Normal Urine Ketones 5 H Urine Occult Blood 250 H Urine Nitrite Negative Urine Bilirubin Negative Urine Urobilinogen Normal Ur Leukocyte Esterase Negative Urine RBC 50-100 SEEN Urine WBC 0 SEEN Ur Squamous Epith Cells 5-10 SEEN Amorphous Sediment 1+ URATE Urine Bacteria RARE Urine Mucus 0 SEEN Radiography Diagnostic Testing: Clinical Impression(s) from Imaging Studies Abdomen/Pelvis CT 04/12/23 19:42 IMPRESSION: 7 mm at least partially obstructing left proximal ureter calculus. Mild splenomegaly. Electronically Signed: Alexander Briones MD at 20:48 EDT , CT scan of the abdomen pelvis was obtained. There is a 7 mm partially obstructing left proximal ureteral calculus. This was interpreted by the radiologist and was also independently reviewed by myself. Treatment and Re-Evaluation :: Patient was advised of his findings. Patient has no pain at this time. Patient was given a prescription for [place]. Patient was given referral for urology follow-up. Patient was instructed return if worse in any way. Patient understood and was agreeable with the plan. All questions were answered. Discharge Plan Triage Chief Complaint: Other, Pain/Inj ED Provider: Mario Gilbert Dx/Rx/DC Orders Clinical Impression: Calculus of proximal left ureter Instructions: ED Kidney Stone w/ Colic Prescriptions: New hydrocodone-acetaminophen [hydrocodone-acetaminophen] 5-325 mg tablet 1 tab PO Q6H PRN PRN (Reason: Pain) 3 Days Qty: 10 0RF No Action lisinopril 10 mg tablet 10 mg PO DAILY Qty: 90 2RF metformin 1,000 mg tablet 1,000 mg PO BID Qty: 180 3RF Trulicity 1.5 mg/0.5 mL pen injector 1.5 mg SC QWEEK Qty: 6 1RF Primary Care Provider: Ce Peres Referrals: Ce Peres MD [Primary Care Provider] - 5-7 Days Lj Hood MD [Med Staff - Active Staff] - 3-5 Days Disposition Disposition: Home, Self Care
--- NOTE | 2023-04-12 19:42 | CT_ITS ---
INDICATION: Left flank pain EXAMINATION: CT ABDOMEN AND PELVIS WITHOUT CONTRAST - CT Abdomen And Pelvis W/O Contrast Injection TECHNIQUE: Helically acquired images were obtained of the abdomen and pelvis without oral or IV contrast. A radiation dose optimization technique was used for this scan. IV Contrast dosage and agent: None. Oral contrast: None. RADIATION DOSAGE (If Supplied By Facility): CTDIvol = ( 10.05 ) mGy, DLP = ( 524.77 ) mGycm COMPARISON: None FINDINGS: LOWER CHEST: Lung bases are clear. No cardiomegaly or pericardial effusion. LIVER: Homogeneous. No focal mass. GALLBLADDER AND BILIARY TREE: No calcified gallstones. No gallbladder distension or wall edema. No intra- or extrahepatic biliary ductal dilation. PANCREAS: No focal cystic or solid mass. SPLEEN: Mild splenomegaly. ADRENAL GLANDS: No nodules. KIDNEYS AND URETERS: Normal renal size and position. 7 mm left proximal ureter calculus with mild hydronephrosis. PERITONEUM: No ascites or free air. No other fluid collection. BOWEL: No evidence of acute appendicitis. No stomach or bowel distension. No focal inflammatory change. LYMPH NODES: No enlarged mesenteric or retroperitoneal lymph nodes. VESSELS: Aorta is non-dilated. URINARY BLADDER: Unremarkable. REPRODUCTIVE ORGANS: No pelvic masses. ABDOMINAL WALL: No discrete abdominal or pelvic wall hernia. BONES: Normal thoracolumbar vertebral alignment. CT/Abdomen/Pelvis without Cont IMPRESSION: 7 mm at least partially obstructing left proximal ureter calculus. Mild splenomegaly. Electronically Signed: Alexander Briones MD at 20:48 EDT ,
[2023-04-12] MEDS: 0.9% Normal Saline 1,000 ML 1000 ML IV (20:06)
[2023-04-12 20:37] LABS: AST(SGOT) 14 U/L (15-37); Absolute Lymphocyte Count 1.73 X10^3/uL (0.83-4.51); Absolute Neutrophil Count 8.3 X10^3/uL (2.0-7.7); Alanine Aminotransfer ALT/SGPT 20 U/L (16-61); Albumin, Serum 3.6 g/dL (3.2-5.0); Alkaline Phosphatase 77 U/L (45-117); Anion Gap 6 (5-15); BUN 13 mg/dL (7-18); BUN/Creat Ratio 9.8 RATIO (10-20); Basophil# 0.03 X10^3/uL; Basophil% 0.3 % (0-1); Calcium,Total 8.9 mg/dL (8.5-10.1); Chloride 106 mmol/L (98-107); Creatinine, Serum 1.33 mg/dL (0.70-1.30); EST Glomerular Filtration Rate 59 mL/min (>60); Eosinophil# 0.01 X10^3/uL; Eosinophils% 0.1 % (0-5); Est Glom Filt Rate - Afr Amer 72 mL/min (>60); Estimated Creatinine Clearance 62.76 ml/min; Globulin 3.5 g/dL (2.2-4.2); Glucose 154 mg/dL (74-106); Hematocrit 45.2 % (40-54); Hemoglobin 15.9 g/dL (13.0-16.5); Lipase 39 U/L (13-75); Lymphocyte # 1.73 X10^3/ul (0.83-4.51); Lymphocyte % 16.3 % (19-41); Mean Corp Hgb Conc 35.2 g/dL (32-36); Mean Corpuscular Volume 85.3 fL (80-94); Mean Platelet Vol. 10.3 fl (6.2-12.0); Monocyte% 4.7 % (0-10); NRBC Flagged by Analyzer 0 % (0-5); Neutrophil # 8.33 X10^3/uL (2.7-7.7); Neutrophil % 78.3 % (47-70); Platelet Count 214 K/mm3 (150-450); Protein, Total 7.1 g/dL (6.4-8.2); RBC Distribution Width CV 12.4 % (11.6-14.6); RBC Distribution Width SD 38.3 fl (35.1-43.9); Sodium Level 138 mmol/L (136-145); White Blood Count 10.6 K/mm3 (4.4-11.0)
[2023-04-12 20:41] LABS: Mucous, Urine 0 SEEN /hpf (<or=2+); White Blood Cells 0 SEEN /hpf (0-5)
[2023-04-12 21:09] LABS: Color, Urine Yellow (Yellow); Glucose, Dipstick Normal (Normal); Ketone-Dipstick 5 mg/dl (Negative); Leukocyte Esterase-Dipstick Negative /ul (Negative); Nitrite-Dipstick Negative (Negative); Occult Blood-Urine 250 /ul (Negative); Protein-Dipstick 30 mg/dl (Negative); Specific Gravity, Urine 1.015 (1.002-1.030); Urine Bilirubin Dipstick Negative (Negative); Urine Clarity Sl. Cloudy (Clear); Urine Urobilinogen Normal (Normal)
[2023-04-12 21:31] LABS: Red Blood Cells-Urine 50-100 SEEN /hpf (0-5)
[2023-04-12 21:32] LABS: Amorphous Sediment 1+ URATE; Bacteria RARE /hpf (None Seen); Squamous Epithelial Cells - UA 5-10 SEEN /hpf (0-5)
[2023-04-12 21:41] VITALS: BP 118/85; PULSE 65; RESP 16; TEMP 37; O2SAT 100
== END 2023-04-12 21:47 | disposition home or self-care (01) ==
PROVIDERS: Emergency Provider Emergency Medicine; PCP Internal Medicine; Visit Provider Emergency Medicine
DX: N20.1 Calculus of ureter (principal); E11.9 Type 2 diabetes mellitus without complications; Z87.442 Personal history of urinary calculi; Z79.85 Long-term (current) use of injectable non-insulin antidiabetic drugs; F17.220 Nicotine dependence, chewing tobacco, uncomplicated
CPT/HCPCS: 74176; 80053; 81001; 83690; 85025; 96360; 96361; 99283; J7030; A4216

== ENCOUNTER → 2023-04-18 | Outpatient (CLI) | payer BC, SELFPAY ==
--- NOTE | 2023-04-18 14:11 | RAD_ITS ---
INDICATION: left stone EXAMINATION/TECHNIQUE: X-RAY - XR Abdomen 1 View: 2 image AP abdomen COMPARISON: CT April 12, 2023 FINDINGS: BOWEL GAS PATTERN: Nonspecific non-obstructive bowel gas pattern. No focal stomach or bowel distention. Moderate proximal colonic stool. FREE AIR: Not well assessed on a supine view. ORGANOMEGALY: Not seen. CALCIFICATIONS: 8 x 2 mm calcification compatible with stone located along the expected course of the left proximal ureter at L3, unchanged from location on prior CT. Multiple pelvic phleboliths are also present. No additional nephrolithiasis is appreciated. LOWER CHEST: Limited visualization. BONES AND SOFT TISSUES: Partially seen right femoral intramedullary cortney with cephalad extension within osseous proliferation lateral to the right pelvis with surrounding lucency suggestive of motion. RAD/Abdomen Single View IMPRESSION: 8 x 2 mm left ureteral stone which is unchanged in location from prior CT Electronically Signed: Dex Oviedo MD at 22:42 EDT ,
== END | disposition home or self-care (01) ==
LOC: RAD 14:06
PROVIDERS: PCP Internal Medicine; Referring Provider Urology; Visit Provider Urology
DX: N20.1 Calculus of ureter (principal)
CPT/HCPCS: 74018

== ENCOUNTER → 2023-10-11 | Outpatient (CLI) | payer BC, SELFPAY ==
[2023-10-11 12:47] LABS: Absolute Lymphocyte Count 2.06 X10^3/uL (0.83-4.51); Absolute Neutrophil Count 3.2 X10^3/uL (2.0-7.7); Basophil# 0.03 X10^3/uL; Basophil% 0.5 % (0-1); Eosinophil# 0.07 X10^3/uL; Eosinophils% 1.2 % (0-5); Hematocrit 48.4 % (40-54); Lymphocyte # 2.06 X10^3/ul (0.83-4.51); Lymphocyte % 35.6 % (19-41); Mean Corp Hgb Conc 33.1 g/dL (32-36); Mean Corpuscular Hgb 28.9 pg (27.0-32.0); Mean Corpuscular Volume 87.5 fL (80-94); Monocyte# 0.44 X10^3/uL; Monocyte% 7.6 % (0-10); NRBC Flagged by Analyzer 0 % (0-5); Neutrophil # 3.18 X10^3/uL (2.7-7.7); Neutrophil % 54.9 % (47-70); Platelet Count 227 K/mm3 (150-450); RBC Distribution Width CV 12.3 % (11.6-14.6); RBC Distribution Width SD 39.5 fl (35.1-43.9); Red Blood Count 5.53 M/mm3 (4.6-6.2); White Blood Count 5.8 K/mm3 (4.4-11.0)
[2023-10-11 13:02] LABS: Microalbumin,Random Urine 11.5 mg/L (NO RANGE EST.); Microalbumin:Creatinine Ratio 5.2 mg/g CRE (<30 mg/g CRE)
[2023-10-11 13:23] LABS: AST(SGOT) 19 U/L (15-37); Alanine Aminotransfer ALT/SGPT 21 U/L (16-61); Albumin, Serum 3.6 g/dL (3.2-5.0); Alkaline Phosphatase 82 U/L (45-117); Anion Gap 6 (5-15); BUN 14 mg/dL (7-18); BUN/Creat Ratio 11.7 RATIO (10-20); Calcium,Total 8.5 mg/dL (8.5-10.1); Chloride 107 mmol/L (98-107); Cholesterol 117 mg/dL (200); EST Glomerular Filtration Rate 67 mL/min (>60); Est Glom Filt Rate - Afr Amer 80 mL/min (>60); Globulin 3.5 g/dL (2.2-4.2); Glucose 130 mg/dL (74-106); High Density Lipoprotein 30 mg/dL; PSA,Total - Annual Screen 2.48 ng/mL (0.00-4.00); Potassium 4.5 mmol/L (3.5-5.1); Protein, Total 7.1 g/dL (6.4-8.2); Sodium Level 141 mmol/L (136-145); Triglycerides 101 mg/dL; Very Low Density Lipoprotein 20 mg/dL (5-40)
== END | disposition home or self-care (01) ==
LOC: BIMLAB 09:16
PROVIDERS: PCP Internal Medicine; Visit Provider Internal Medicine
DX: Z00.00 Encounter for general adult medical examination without abnormal findings (principal); E11.9 Type 2 diabetes mellitus without complications; I10 Essential (primary) hypertension
CPT/HCPCS: 36415; 80053; 80061; 82043; 82570; 84153; 85025; G0103

== ENCOUNTER → 2024-04-17 | Outpatient (CLI) | payer BC, SELFPAY ==
[2024-04-17 17:45] LABS: Anion Gap 7 (5-15); BUN 19 mg/dL (7-18); BUN/Creat Ratio 15.4 RATIO (10-20); Calcium,Total 9.2 mg/dL (8.5-10.1); Chloride 103 mmol/L (98-107); Creatinine, Serum 1.23 mg/dL (0.70-1.30); EST Glomerular Filtration Rate 65 mL/min (>60); Est Glom Filt Rate - Afr Amer 78 mL/min (>60); Glucose 262 mg/dL (74-106); Potassium 4.3 mmol/L (3.5-5.1); Sodium Level 138 mmol/L (136-145)
== END | disposition home or self-care (01) ==
LOC: BIMLAB 08:54
PROVIDERS: PCP Internal Medicine; Referring Provider Internal Medicine; Visit Provider Internal Medicine
DX: I10 Essential (primary) hypertension (principal)
CPT/HCPCS: 36415; 80048

== ENCOUNTER 2024-06-12 06:18 | Day surgery (SDC) | payer BC, SELFPAY ==
[2024-06-12 06:38] VITALS: BP 112/78; PULSE 73; RESP 16; TEMP 36.5; O2SAT 96; BMI 29.0
--- NOTE | 2024-06-12 07:09 | PCM.HP.BLA ---
History and Physical Date of Admission: 06/12/24 The patient is examined and there are no changes to the H&P dated 06/03/2024. He presents for excision of a BCC of the left forearm with frozen section to ensure clear margins. Informed consent was obtained. Assessment & Plan Assessment/Plan (1) Basal cell carcinoma (BCC) of left forearm: PLAN: Plan For excision BCC left forearm with FS.
--- NOTE | 2024-06-12 07:30 | LES_PTH ---
PATIENT: IRVIN PETERSON LOC: [facility] [place] U#:[id number] AGE/SX: 59/M ROOM: RE06/12/[address]: Dr. Farheen Gan MD : [id number] BED: DIS: 06/12/2024 SPEC #: [id number] RECD: 06/12/24 07:54 STATUS: JESSICA PEREZ #: [id number] MARISOL: 06/12/24 07:[address]: Farheen Gan DEPT: SURGICAL PATHOLOGY RECD BY: Kamlesh Gannon ENTERED: 06/12/24 08:19 SP TYPE: Lesion OTHR DR: Dr. Ce Peres MD Tissues: Skin of arm Procedures: Frozen Section (charge) Surgery Specimen Level IV HEADER OPERATION: Excision basal cell carcinoma, left arm PRE-OP DIAGNOSIS: Basal cell carcinoma, left arm POST-OP DIAGNOSIS: Basal cell carcinoma, left arm TISSUE SUBMITTED: Basal cell carcinoma, left arm frozen FROZEN SECTION DIAGNOSIS Left arm lesion, excisional biopsy: - Basal cell carcinoma. Margins are free of tumor. Braxton 06/12/2024 MICROSCOPIC DIAGNOSIS Left arm lesion, excisional biopsy: Focal area of residual basal cell carcinoma. Margins are free of tumor. See comment. 06/15/2024 COMMENT Residual focus of basal cell carcinoma is noted in the frozen sections slides. Dermal fibrosis with consistent scar (previous biopsy site) is also noted. Please make reference to previous specimen dated 04/28/2024 from [facility] Dermatology of left distal forearm, biopsy by shave method with diagnosis of nodular basal cell carcinoma. MICROSCOPIC DESCRIPTION Slides are reviewed. GROSS DESCRIPTION Received fresh for frozen section diagnosis labeled with the patient's name is a specimen designated Basal cell carcinoma left arm. The specimen consists of a piece of mike-white skin ellipse measuring 1.5 x 0.7 x 0.2cm. The specimen is oriented on a gauze piece. The specimen is inked as follows: 12o'clock tip-yellow, 6o'clock tip- green, 3o'clock margin- black, 9o'clock margin- blue. The specimen is serially sectioned and submitted entirely in two cassettes. Cassette 1 contains a 6&12o'clock tips (enfaced). SJ.mr 06/15/2024 TC:0 CPT:09450,39978,55916
[2024-06-12] MEDS: Lidocaine 1% /Epi 1:100 9 ML, Sodium Bicarbonate 1 MEQ OPERA.SITE (07:43)
[2024-06-12 07:49] VITALS: BP 116/84; BP 117/83; O2SAT 96; O2SAT 97
--- NOTE | 2024-06-12 08:23 | DCINST_ITS ---
Discharge Instructions Dressing / Incision Additional Dressing/Incision Instructions:: Keep your arm elevated when possible to decrease swelling and bruising. Take the oral antibiotic (Keflex) 2 times a day until finished. May remove the wrap to shower-- leave the underlying adhesive dressing intact. Do not remove this dressing until seen in the office. Try to wear the wrap when physically active to protect the site. Follow Up Care Please Follow Up With: Farheen Gan MD When: 1 to 2 weeks Test Results: Test results from this visit will be discussed in further detail at your follow- up appointment, if applicable. Discharge Plan Admission Attending Provider: Farheen Gan Primary Care Provider: Ce Peres Instructions Print Language: Azerbaijani Discharge Orders/Prescriptions Prescriptions: New cephalexin 500 mg capsule 500 mg PO BID 7 Days Qty: 14 0RF No Action semaglutide 1 mg/dose (4 mg/3 mL) pen injector 1 mg subcut QWEEK 90 Days Qty: 9.75 1RF (DME) blood-glucose meter [FreeStyle Lite Meter] Kit See Rx Instructions .MEDSUPPLY Qty: 1 0RF Rx Instructions: As directed, check blood glucose daily for type 2 DM (DME) lancets [FreeStyle Lancets] 28 gauge misc See Rx Instructions .MEDSUPPLY Qty: 200 3RF Rx Instructions: check blood glucose daily for type 2 DM (DME) FreeStyle Lite Strips Strip See Rx Instructions .MEDSUPPLY Qty: 100 3RF Rx Instructions: check blood glucose daily for type 2 DM lisinopril 10 mg tablet 10 mg PO DAILY Qty: 90 2RF metformin 1,000 mg tablet 1,000 mg PO BID Qty: 180 3RF Referrals / Follow Up: Ce Peres MD [Primary Care Provider] - Disposition Disposition (needs filled in before D/C Order can be placed): Home, Self Care
--- NOTE | 2024-06-12 08:26 | OP.PCM_ITS ---
Problems Associated Problem List Diagnoses (1) Basal cell carcinoma (BCC) of left forearm: Report of Operation Date of Procedure: 06/12/24 Pre-Operative Diagnosis: Nodular BCC left forearm Post-Operative Diagnosis: Same Surgery/Procedure Performed:: Excision BCC left forearm with FS and intermediate closure (3.0 cm) Surgeon: Farheen Gan Type of Anesthesia: Local Specimen's removed: As above Estimated Blood Loss (mL): Minimal Description of Procedure: The patient presents today with a biopsy-proven nodular BCC of the forearm. He presents for excision of the neoplasm with frozen section evaluation to ensure complete removal. Informed consent was obtained. The patient was brought to the operating room and placed on the operating room table in the supine position. The left forearm was prepped and draped in the usual sterile fashion. 1% Xylocaine with epinephrine buffered with sodium bicarb is used for local anesthetic. Following this, the site is elliptically excised with a margin around the previous biopsy site. The excision is taken down to subcutaneous fat so a full-thickness skin excision is performed. The specimen maintains orientation when it is sent down to pathology for frozen section evaluation of margins. Hemostasis is controlled with cautery. Frozen section reveals clear margins and therefore the wound is closed. Vicryl sutures were used to approximate subcutaneous tissue and dermis. Skin edges were approximated with a running subcuticular Vicryl suture. Further reinforcement the closure is performed with a running Prolene suture. Dermabond and Steri- Strips as well as a Tegaderm are placed on the site. 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 He tolerated the procedure well was taken to the recovery area in an awake and stable condition. Needle and sponge counts are correct. Complications None Admit VTE Documentation VTE Mechan Device Prophylaxis: None Reason prophylaxis not ordered:: Treatment Not Indicated
[2024-06-12 08:33] VITALS: BP 112/78; BP 125/82; PULSE 65; RESP 16; TEMP 36.8; O2SAT 98
== END 2024-06-12 08:42 | disposition home or self-care (01) ==
LOC: SDC 06:22 → AC 06:23
PROVIDERS: PCP Internal Medicine; Referring Provider Plastic Surgery; Visit Provider Plastic Surgery
PROC: (CPT 11603; principal; 2024-06-12 07:20)
DX: C44.619 Basal cell carcinoma of skin of left upper limb, including shoulder (principal); E11.9 Type 2 diabetes mellitus without complications; Z79.899 Other long term (current) drug therapy; Z79.84 Long term (current) use of oral hypoglycemic drugs; F17.220 Nicotine dependence, chewing tobacco, uncomplicated
CPT/HCPCS: 11603; 12032; 88305; 88331

== ENCOUNTER → 2024-07-20 | Outpatient (CLI) | payer BC, SELFPAY ==
[2024-07-20 12:53] LABS: Anion Gap 4 (5-15); BUN 15 mg/dL (7-18); BUN/Creat Ratio 12.8 RATIO (10-20); Calcium,Total 9.3 mg/dL (8.5-10.1); Chloride 109 mmol/L (98-107); Creatinine, Serum 1.17 mg/dL (0.70-1.30); EST Glomerular Filtration Rate 68 mL/min (>60); Est Glom Filt Rate - Afr Amer 83 mL/min (>60); Glucose 134 mg/dL (74-106); Potassium 4.1 mmol/L (3.5-5.1); Sodium Level 141 mmol/L (136-145)
== END | disposition home or self-care (01) ==
LOC: BIMLAB 08:37
PROVIDERS: PCP Internal Medicine; Referring Provider Internal Medicine; Visit Provider Internal Medicine
DX: I10 Essential (primary) hypertension (principal); E11.69 Type 2 diabetes mellitus with other specified complication
CPT/HCPCS: 36415; 80048

== ENCOUNTER → 2024-10-23 | Outpatient (CLI) | payer BC, SELFPAY ==
[2024-10-23 12:04] LABS: Absolute Lymphocyte Count 1.54 X10^3/uL (0.83-4.51); Absolute Neutrophil Count 3.5 X10^3/uL (2.0-7.7); Basophil# 0.06 X10^3/uL; Basophil% 1.1 % (0-1); Eosinophil# 0.06 X10^3/uL; Eosinophils% 1.1 % (0-5); Hematocrit 48.2 % (40-54); Hemoglobin 16.1 g/dL (13.0-16.5); Lymphocyte # 1.54 X10^3/ul (0.83-4.51); Lymphocyte % 27.5 % (19-41); Mean Corp Hgb Conc 33.4 g/dL (32-36); Mean Corpuscular Hgb 29.5 pg (27.0-32.0); Mean Corpuscular Volume 88.4 fL (80-94); Mean Platelet Vol. 10.7 fl (6.2-12.0); Monocyte# 0.43 X10^3/uL; Monocyte% 7.7 % (0-10); NRBC Flagged by Analyzer 0 % (0-5); Neutrophil # 3.49 X10^3/uL (2.7-7.7); Neutrophil % 62.4 % (47-70); Platelet Count 209 K/mm3 (150-450); RBC Distribution Width CV 12.3 % (11.6-14.6); RBC Distribution Width SD 39.8 fl (35.1-43.9); Red Blood Count 5.45 M/mm3 (4.6-6.2); White Blood Count 5.6 K/mm3 (4.4-11.0)
[2024-10-23 12:32] LABS: AST(SGOT) 19 U/L (15-37); Alanine Aminotransfer ALT/SGPT 25 U/L (16-61); Albumin, Serum 3.7 g/dL (3.2-5.0); Alkaline Phosphatase 84 U/L (45-117); Anion Gap 6 (5-15); BUN 13 mg/dL (7-18); BUN/Creat Ratio 11.1 RATIO (10-20); Calcium,Total 9.3 mg/dL (8.5-10.1); Chloride 105 mmol/L (98-107); Cholesterol 115 mg/dL (200); Creatinine, Serum 1.17 mg/dL (0.70-1.30); EST Glomerular Filtration Rate 68 mL/min (>60); Est Glom Filt Rate - Afr Amer 83 mL/min (>60); Globulin 3.6 g/dL (2.2-4.2); Glucose 190 mg/dL (74-106); High Density Lipoprotein 39 mg/dL; PSA,Total - Annual Screen 2.56 ng/mL (0.00-4.00); Potassium 4.3 mmol/L (3.5-5.1); Protein, Total 7.3 g/dL (6.4-8.2); Sodium Level 140 mmol/L (136-145); Triglycerides 113 mg/dL; Very Low Density Lipoprotein 23 mg/dL (5-40)
== END | disposition home or self-care (01) ==
PROVIDERS: PCP Internal Medicine; Referring Provider Internal Medicine; Visit Provider Internal Medicine
DX: Z12.5 Encounter for screening for malignant neoplasm of prostate (principal); E11.69 Type 2 diabetes mellitus with other specified complication; I10 Essential (primary) hypertension
CPT/HCPCS: 36415; 80053; 80061; 84153; 85025; G0103

== ENCOUNTER → 2025-02-12 | Outpatient (CLI) | payer BC, SELFPAY | END | disposition home or self-care (01) | LOC: BIMLAB 08:57 | PROVIDERS: PCP Internal Medicine; Referring Provider Internal Medicine; Visit Provider Internal Medicine | DX: N52.9 Male erectile dysfunction, unspecified (principal) | CPT/HCPCS: 36415; 84402; 84403 ==